=== PATIENT | female | born 1995 | race Caucasian/White ===

== ENCOUNTER 2021-10-27 02:35 | Emergency (ER) | payer OTHER ==
[2021-10-27] MEDS ORDERED: Ondansetron PF 4 MG/2 ML Vial ONE (03:09)
== END 2021-10-27 08:58 | disposition home or self-care (01) ==
LOC: ERS 02:35
DX: F10.129 Alcohol abuse with intoxication, unspecified (principal)
CPT/HCPCS: 96361; 96374; J2405